=== PATIENT | female | born 2000 | race Caucasian/White ===

== ENCOUNTER 2020-06-11 15:17 | Observation (INO) | payer BC ==
--- NOTE | 2020-06-11 15:43 | ER Document Report ---
ED Medical Screen (RME) - General Chief Complaint: Near Syncope Stated Complaint: LIGHTHEADED,FEEL "TINGLY" Time Seen by Provider: 06/11/20 15:33 Mode of Arrival: Wheelchair Information source: Patient Notes: HPI; 20-year-old female presents to the emergency room today complaining of 2 syncopal episodes that happened just prior to arrival. States positive loss of consciousness for approximately 1 minute. No trauma or injury preceding or post syncopal episode. Patient developed chest tightness after the second syncopal episode but denies it is midsternal tightness. Recently drove here from [place] 2 days ago. Also recently had an IUD put in 3 weeks ago. No history of DVTs. PE: Alert and oriented x3. Moderate distress noted. Lungs: Clear to auscultation without rales, rhonchi, wheezes. Heart tachycardic without murmurs, rubs, gallops. I have greeted and performed a rapid initial assessment of this patient. A comprehensive ED assessment and evaluation of the patient, analysis of test results and completion of the medical decision making process will be conducted by additional ED providers. I have specifically instructed the patient or family members with the patient to immediately return to any nursing staff should anything change in the patient's condition or with their chief complaint. TRAVEL OUTSIDE OF THE [place] IN LAST 30 DAYS: No - Related Data Allergies/Adverse Reactions: Penicillins Allergy (Verified 06/11/20 15:31) Home Medications: spiralactone. q-sameera Past Medical History - Social History Chew tobacco use (# tins/day): No Frequency of alcohol use: Occasional Drug Abuse: None Physical Exam - Vital signs Vitals: Temp Pulse Resp BP Pulse Ox 97.5 F 123 H 18 143/88 H 100 06/11/20 15:25 06/11/20 15:25 06/11/20 15:25 06/11/20 15:25 06/11/20 15:25 Course - Vital Signs Vital signs: Temp Pulse Resp BP Pulse Ox 97.5 F 123 H 18 143/88 H 100 06/11/20 15:25 06/11/20 15:25 06/11/20 15:25 06/11/20 15:25 06/11/20 15:25
--- NOTE | 2020-06-11 16:24 | RADIOLOGY REPORT (SQ) ---
EXAM DESCRIPTION: CHEST SINGLE VIEW IMAGES COMPLETED DATE/TIME: 06/11/2020 4:05 pm REASON FOR STUDY: chest pain COMPARISON: None. EXAM PARAMETERS: NUMBER OF VIEWS: One view. TECHNIQUE: Single frontal radiographic view of the chest acquired. RADIATION DOSE: NA LIMITATIONS: None. FINDINGS: LUNGS AND PLEURA: No opacities, masses or pneumothorax. No pleural effusion. MEDIASTINUM AND HILAR STRUCTURES: No masses. Contour normal. HEART AND VASCULAR STRUCTURES: Heart normal in size. Normal vasculature. BONES: No acute findings. HARDWARE: None in the chest. OTHER: No other significant finding. IMPRESSION: NO ACUTE RADIOGRAPHIC FINDING IN THE CHEST. TECHNICAL DOCUMENTATION: JOB ID: [id number] 2010 [employer]- All Rights Reserved Reading location - IP/workstation name: [email or web address]
[2020-06-11 16:27] LABS: ABSOLUTE EOSINOPHILS # (AUTO) 0.2 10^3/uL (0.0-0.6); ABSOLUTE LYMPHOCYTES (AUTO) 3.4 10^3/uL (0.5-4.7); ABSOLUTE MONOCYTES (AUTO) 0.8 10^3/uL (0.1-1.4); ABSOLUTE NEUT (AUTO) 7.1 10^3/uL (1.7-8.2); BASOPHILS % (AUTO) 0.3 % (0-2); EOSINOPHILS % (AUTO) 1.9 % (0-6); HEMATOCRIT 38.8 % (36.0-47.0); HEMOGLOBIN 13.9 g/dL (12.0-15.5); LYMPHOCYTES % (AUTO) 29.5 % (13-45); MEAN CORPUSCULAR HGB CONC 35.8 g/dL (32.0-36.0); MEAN CORPUSCULAR VOLUME 87 fl (80-97); MONOCYTES % (AUTO) 7.2 % (3-13); PLATELET COUNT 423 10^3/uL (150-450); RED BLOOD COUNT 4.48 10^6/uL (3.72-5.28); RED CELL DISTRIBUTION WIDTH 12.3 % (11.5-14.0); SEGMENTED NEUTROPHILS % (AUTO) 61.1 % (42-78); TOTAL CELLS COUNTED % (AUTO) 100 %; WHITE BLOOD COUNT 11.5 10^3/uL (4.0-10.5)
[2020-06-11] MEDS ORDERED: RINGERS SOLUTION,LACTATED 1,000 ML IV ONE (16:42)
[2020-06-11 16:50] LABS: ALBUMIN 5.3 g/dL (3.5-5.0); ALKALINE PHOSPHATASE 83 U/L (38-126); ANION GAP 15 (5-19); ASPARTATE AMINO TRANSFERASE 30 U/L (14-36); BILIRUBIN,DIRECT 0.3 mg/dL (0.0-0.4); BILIRUBIN,TOTAL 1.2 mg/dL (0.2-1.3); BLOOD UREA NITROGEN 8 mg/dL (7-20); CALCIUM 10.1 mg/dL (8.4-10.2); CARBON DIOXIDE 24 mmol/L (22-30); CHLORIDE 100 mmol/L (98-107); CREATINE KINASE 63 U/L (30-135); GLUCOSE 107 mg/dL (75-110); POTASSIUM 4.1 mmol/L (3.6-5.0); TOTAL PROTEIN 8.3 g/dL (6.3-8.2)
[2020-06-11 17:00] LABS: CREATINE KINASE MB 0.22 ng/mL (<4.55)
[2020-06-11 17:02] LABS: TROPONIN I < 0.012 ng/mL
--- NOTE | 2020-06-11 18:37 | ER Document Report ---
ED Syncope and Near Syncope - General Chief Complaint: Near Syncope Stated Complaint: LIGHTHEADED,FEEL "TINGLY" Time Seen by Provider: 06/11/20 15:33 Mode of Arrival: Wheelchair Notes: 20-year-old female with history of asthma and optic nerve glioma (stable) coming in today with reports of syncopal episodes almost back to back earlier today. Patient evidently drove here from [place] yesterday only stoppin g twice in route. She and her significant other were out having alcoholic beverages last night. Patient reports drinking 5 drinks. They went to bed around 1 AM and woke up at noon today. Patient acknowledges smoking marijuana. Started feeling dizzy and lightheaded on the way up to the apartment. Currently syncopized just for 30 seconds or so. Shortly thereafter she syncopized again. She reports a history in the past of sinus tachycardia. Reports normal thyroid testing recently. She is complaining of some chest tightness and shortness of breath. She has an IUD. She does not smoke cigarettes. No recent surgical interventions. TRAVEL OUTSIDE OF THE [place] IN LAST 30 DAYS: No - Related Data Allergies/Adverse Reactions: Penicillins Allergy (Verified 06/11/20 15:31) Home Medications: spiralactone. q-sameera Past Medical History - General Information source: Patient - Social History Smoking Status: Never Smoker Chew tobacco use (# tins/day): No Frequency of alcohol use: Occasional Drug Abuse: Marijuana Family History: Other - Patient sister has accelerated heart rate and recently had a syncopal episode at work, dad has a "cardiac arrhythmia" and cardiomegaly, takes medication for high blood pressure, mom recently admitted the hospital for cardiac rule out Patient has suicidal ideation: No Patient has homicidal ideation: No - Medical History Medical History: Other Notes: Patient reports history of asthma well-controlled, polycystic ovarian syndrome, and a left optic nerve glioma which is stable - Past Medical History Cardiac Medical History: Reports: Other - Tachycardia Pulmonary Medical History: Reports: Hx Asthma Review of Systems - Review of Systems Notes: Constitutional: No fevers. No chills. EENT: No eye redness. No eye pain. No ear pain. No sore throat. Cardiovascular: + CP and palpitations Respiratory: No cough. +shortness of breath. No respiratory distress. Gastrointestinal: No abdominal pain. No nausea, vomiting, or diarrhea. Genitourinary: Atraumatic. No lesions. No pain. No discharge. Musculoskeletal: Atraumatic. No swelling. No deformities. Skin: No rash or lesions. Lymphatic: No swollen lymph nodes. Neurologic: No headache. +syncope. Psychiatric: No suicidal or homicidal ideation. Physical Exam - Vital signs Vitals: Temp Pulse Resp BP Pulse Ox 97.5 F 123 H 18 143/88 H 100 06/11/20 15:25 06/11/20 15:25 06/11/20 15:25 06/11/20 15:25 06/11/20 15:25 - Notes Notes: General: Well-developed, well-nourished. In no acute distress. Non-toxic appearing. Cardiac: Well-perfused. Tachycardic. No murmurs, rubs, or gallops. Pulmonary: No respiratory distress. No cyanosis. Bilateral lung ambrosio are clear to auscultation. Mildly tachypneic Abdominal: Non-distended. Non-rigid. Bowels sounds are present in all four quadrants. No guarding or rebound. HEENT: Head is atraumatic. Conjunctivae not reddened. No tearing. PERRL. EOMI. Orbits atraumatic. No periorbital swelling or erythema. Oropharynx is without erythema, swelling, or exudates. Neck: Supple. No adenopathy. No meningismus. Dermatologic: Warm with good turgor. No rash. Atraumatic. Chest: Atraumatic. No chest wall tenderness to palpation. Musculoskeletal: Moves all extremities well. No range of motion deficits. no muscular or joint tenderness. No paraspinal muscle tenderness. no midline spinal tenderness or step-off. Genitourinary: Examination deferred Neurologic: No gross neurologic deficits. Psychiatric: Normal mood. Course - Re-evaluation Re-evalutation: 06/11/20 21:39 Heart rate has come down to a normal range. Patient still dizzy and lightheaded. Discussed case with ED attending. Recommends admission for observation. - Vital Signs Vital signs: Temp Pulse Resp BP Pulse Ox 99.3 F 105 H 16 123/78 98 06/11/20 17:29 06/11/20 17:29 06/11/20 17:29 06/11/20 17:29 06/11/20 17:45 - Laboratory Result Diagrams: 06/11/20 15:45 06/11/20 15:45 Laboratory results interpreted by me: 06/11/20 06/11/20 15:45 15:45 WBC 11.5 H Total Protein 8.3 H Albumin 5.3 H - EKG Interpretation by Me EKG shows normal: Sinus rhythm Rate: Tachycardia Discharge - Discharge Clinical Impression: Tachycardia Syncopal episodes Qualifiers: Syncope type: unspecified Qualified Code(s): R55 - Syncope and collapse Condition: Good Disposition: ADMITTED OBSERVATION Admitting Provider: Ava (Hospitalist) Unit Admitted: Telemetry
--- NOTE | 2020-06-11 19:55 | RADIOLOGY REPORT (SQ) ---
EXAM DESCRIPTION: CT HEAD WITHOUT IMAGES COMPLETED DATE/TIME: 06/11/2020 7:28 pm REASON FOR STUDY: syncopal episodes COMPARISON: None. TECHNIQUE: Axial images acquired through the brain without intravenous contrast. Images reviewed wi th bone, brain and subdural windows. Images stored on PACS. All CT scanners at this facility use dose modulation, iterative reconstruction, and/or weight based d osing when appropriate to reduce radiation dose to as low as reasonably achievable (ALARA). [facility]: Dose Right [facility]: CareDose [facility]: Dose Right [facility]: Teradose 4D [facility]: FOLUP RADIATION DOSE: CT Rad equipment meets quality standard of care and radiation dose reduction techniq ues were employed. CTDIvol: 53.2 mGy. DLP: 991 mGy-cm. mGy. LIMITATIONS: None. FINDINGS: VENTRICLES: Normal size and contour. CEREBRUM: No masses. No hemorrhage. No midline shift. No evidence for acute infarction. Normal gra y/white matter differentiation. No areas of low density in the white matter. CEREBELLUM: No masses. No hemorrhage. No alteration of density. No evidence for acute infarction. EXTRAAXIAL SPACES: No fluid collections. No masses. ORBITS AND GLOBE: No intra- or extraconal masses. Normal contour of globe without masses. CALVARIUM: No fracture. PARANASAL SINUSES: No fluid or mucosal thickening. SOFT TISSUES: No mass or hematoma. OTHER: No other significant finding. IMPRESSION: NORMAL BRAIN CT WITHOUT CONTRAST. EVIDENCE OF ACUTE STROKE: NO. COMMENT: Quality ID # [id number]: Final reports with documentation of one or more dose reduction techniques (e.g., Automated exposure control, adjustment of the mA and/or kV according to patient size, use of iterative reconstruction technique) TECHNICAL DOCUMENTATION: JOB ID: [id number] 2010 [employer]- All Rights Reserved Reading location - IP/workstation name: [email or web address]
--- NOTE | 2020-06-11 19:58 | RADIOLOGY REPORT (SQ) ---
EXAM DESCRIPTION: CTA CHEST IMAGES COMPLETED DATE/TIME: 06/11/2020 7:28 pm REASON FOR STUDY: chest pain COMPARISON: None. TECHNIQUE: CT scan of the chest performed using helical scanning technique with dynamic intravenous contrast injection. Images reviewed with lung, soft tissue and bone windows. Reconstructed coronal and sagittal MPR images reviewed. Additional 3 dimensional post-processing performed to develop Maximal Intensity Projection images (AL P). All images stored on PACS. All CT scanners at this facility use dose modulation, iterative reconstruction, and/or weight based d osing when appropriate to reduce radiation dose to as low as reasonably achievable (ALARA). [facility]: Dose Right [facility]: CareDose [facility]: Dose Right [facility]: Teradose 4D [facility]: [employer] CONTRAST TYPE AND DOSE: contrast/concentration: Isovue 350.00 mmol/ml; Total Contrast Delivered: 49. 0 ml; Total Saline Delivered: 29.9 ml 49 mL Isovue 300- low osmolar. Contrast bolus optimized for the pulmonary arteries. Not diagnostic for the aorta. RENAL FUNCTION: GFR > 60. RADIATION DOSE: CT Rad equipment meets quality standard of care and radiation dose reduction techniq ues were employed. CTDIvol: 6.6 - 29.8 mGy. DLP: 1127 mGy-cm. . LIMITATIONS: None. FINDINGS: LUNGS AND PLEURA: No masses, infiltrates, or pneumothorax. No pleural effusions or pleura l calcifications. AORTA AND GREAT VESSELS: No aneurysm. Contrast bolus not optimized for the aorta. HEART: No pericardial effusion. No significant coronary artery calcifications. PULMONARY ARTERIES: No emboli visualized in the main pulmonary arteries or the segmental branches. HILAR AND MEDIASTINAL STRUCTURES: No identified masses or abnormal nodes. HARDWARE: None in the chest. UPPER ABDOMEN: No significant findings. Limited exam. THYROID AND OTHER SOFT TISSUES: No masses. No adenopathy. BONES: No acute or significant finding. 3D MIPS: Confirm above findings. OTHER: No other significant finding. IMPRESSION: NORMAL CTA OF THE CHEST. NO PULMONARY EMBOLI. COMMENT: Quality ID # [id number]: Final reports with documentation of one or more dose reduction techniques (e.g., Automated exposure control, adjustment of the mA and/or kV according to patient size, use of iterative reconstruction technique) TECHNICAL DOCUMENTATION: JOB ID: [id number] 2010 [employer]- All Rights Reserved Reading location - IP/workstation name: [email or web address]
--- NOTE | 2020-06-11 20:23 | EKG REPORT ---
SEVERITY:- BORDERLINE ECG - SINUS TACHYCARDIA BORDERLINE T ABNORMALITIES, INFERIOR LEADS : Confirmed by: Flex Infante 11-Jun-2020 20:22:25
[2020-06-11] MEDS ORDERED: MAG HYDROX/AL HYDROX/SIMETH SUSP 30 ML UDCUP PO PRN (22:17)
[2020-06-11] MEDS ORDERED: MAGNESIUM HYDROXIDE SUSP 30 ML UDCUP PO PRN (22:17)
[2020-06-11] MEDS ORDERED: LEVALBUTEROL HCL NEB 0.63 MG/3 ML AMPUL NEB PRN (22:17)
[2020-06-11] MEDS ORDERED: ONDANSETRON HCL INJ/PF 4 MG/2 ML SDV IV PRN (22:17)
--- NOTE | 2020-06-12 00:40 | PDOC H&P ---
History of Present Illness Admission Date/PCP: 06/11/2020 21:40 OOT PCP Patient complains of: Syncopal episodes History of Present Illness: STEFANIE GONZALEZ is a 20 year old female who presented to the emergency room with a history of 2 syncopal episodes just prior to admission. She admits having a syncopal episode as she was ascending the stairway to her boyfriend's apartment this afternoon. She was unconscious for approximately 30 seconds with no seizure activity per her boyfriend who witnessed the event. He then helped her get to the apartment and within a few minutes she had another syncopal episode of similar nature and duration. She admits accompanying a lightheaded and tingly sensation that begin last evening after she drove to [facility] directly from the [facility] to see her boyfriend. She admits to going out after her arrival and consuming several alcoholic beverages and smoking marijuana. She admits having a late night, getting to sleep about 1 AM, waking up about noon today and still feeling lightheaded and tingly. The syncopal events occurred shortly thereafter. She admits an associated mild tightness and shortness of breath beginning prior to the syncopal episodes and spontaneously resolving during her ER stay. She denies other associated or accompanying signs and symptoms. She denies prior similar episodes. She has not identified any additional aggravating or ameliorating factors for her syncopal episodes. In the emergency room she was found to be mildly tachycardic initially with resolution after receiving IV fluids and was otherwise noted to have an essentially negative evaluation, but the emergency ro om pedro was uncomfortable letting her go home and asked that she be placed on observation status for further evaluation before discharge. Patient was subsequently admitted to observation status on telemetry with a cardiology consult evaluation by Dr. Forman ordered. Past Medical History Cardiac Medical History: Reports: Other - Syncopal episodes in childhood, recent "episodes of tachycardia" Denies: Atrial Fibrillation, Coronary Artery Disease, DVT, Hyperlipidema, Hypertension, Pulmonary Embolism Pulmonary Medical History: Reports: Asthma - Intermittent intrinsic asthma - mild Denies: Chronic Obstructive Pulmonary Disease (COPD) EENT Medical History: Reports: Eyes - Glioma of optic nerve Denies: Cataracts, Ears - Hearing aids Neurological Medical History: Reports: Migraine Denies: Multiple Sclerosis, Seizures Endocrine Medical History: Denies: Diabetes Mellitus Type 1, Hyperthyroidism, Hypothyroidism, Obesity Endocrine History Note: Recent normal thyroid testing performed by her primary care provider in [place] Renal/ Medical History: Reports: Other - Polycystic ovarian syndrome Denies: Chronic Kidney Disease, Nephrolithiasis Malignancy Medical History: Reports: None GI Medical History: Denies: Cirrhosis, Crohn's Disease, Hepatitis, Peptic Ulcer Disease, Ulcerative Colitis Musculoskeltal Medical History: Denies: Arthritis, Fibromyalgia Skin Medical History: Denies: Eczema, Psoriasis Psychiatric Medical History: Reports: Substance Abuse Denies: Alcohol Dependency, Tobacco Dependency Traumatic Medical History: Reports: None Hematology: Denies: Anemia, Bleeding Tendencies Infectious Medical History: Reports: None Past Surgical History Past Surgical History: Reports: Tonsillectomy, Other - Exploratory laparoscopy (evaluation of PCOS), IUD insertion Social History Information Source: Patient Lives with: Spouse/Significant other Smoking Status: Never Smoker Electronic Cigarette use?: No Frequency of Alcohol Use: Social Hx Recreational Drug Use: Yes Drugs: Marijuana Hx Prescription Drug Abuse: No - Advance Directive Resuscitation Status: Full Code Surrogate healthcare decision maker:: Justen Mccloud Family History Family History: CAD - Cardiomegaly, Other - Cardiac arrhythmias in father, s ister with tachycardia and a syncopal episode while at work Parental Family History Reviewed: Yes Children Family History Reviewed: No Sibling(s) Family History Reviewed.: Yes Medication/Allergy Home Medications: Fremanezumab-Vfrm [Ajovy Autoinjector] 225 mg SUBCUT ASDIR 06/12/20 Nitrofurantoin Monohyd/M-Cryst [Macrobid 100 mg Capsule] 1 cap PO BID 06/12/20 Spironolactone [Aldactone 25 mg Tablet] 1 tab PO BID 06/12/20 Allergies/Adverse Reactions: Penicillins Allergy (Verified 06/11/20 15:31) Review of Systems Constitutional: PRESENT: as per HPI, other - Lightheaded and tingly. ABSENT: chills, fever(s) Eyes: ABSENT: visual disturbances, other - Eye pain Ears: ABSENT: hearing changes, other - Ear pain Nose, Mouth, and Throat: ABSENT: headache(s), sore throat Cardiovascular: PRESENT: as per HPI, chest pain - Chest tightness. ABSENT: palpitations Respiratory: PRESENT: as per HPI, dyspnea. ABSENT: cough Gastrointestinal: ABSENT: abdominal pain, constipation, diarrhea, nausea, vomiting Genitourinary: PRESENT: other - Currently being treated for UTI with Macrobid. ABSENT: dysuria, hematuria Musculoskeletal: ABSENT: back pain, joint swelling, muscle weakness Integumentary: ABSENT: pruritus, rash Neurological: PRESENT: as per HPI, syncope, other - Lightheaded and tingly. ABSENT: confusion, convulsions, focal weakness, memory loss Psychiatric: ABSENT: anxiety, depression Endocrine: ABSENT: cold intolerance, heat intolerance Hematologic/Lymphatic: ABSENT: easy bleeding, easy bruising Allergic/Immunologic: ABSENT: seasonal rhinorrhea Physical Exam Vital Signs: Temp Pulse Resp BP Pulse Ox 99.3 F 105 H 16 123/78 98 06/11/20 17:29 06/11/20 17:29 06/11/20 17:29 06/11/20 17:29 06/11/20 17:45 Intake & Output 06/09/20 06/10/20 06/11/20 23:59 23:59 23:59 Intake Total 1000 Balance 1000 Weight 52.6 kg General appearance: PRESENT: no acute distress, cooperative Head exam: PRESENT: atraumatic, normocephalic Eye exam: PRESENT: conjunctiva pink. ABSENT: conjunctival injection, scleral icterus Ear exam: PRESENT: normal external ear exam. ABSENT: bleeding, drainage Mouth exam: PRESENT: dry mucosa, neck supple Neck exam: ABSENT: thyromegaly, tracheal deviation Respiratory exam: PRESENT: clear to auscultation patria, symmetrical, unlabored Cardiovascular exam: PRESENT: RRR. ABSENT: clicks, gallop, rubs Pulses: PRESENT: normal radial pulses, normal dorsalis pedis pul GI/Abdominal exam: PRESENT: normal bowel sounds, soft. ABSENT: tenderness Rectal exam: PRESENT: deferred Extremities exam: ABSENT: joint swelling, pedal edema Musculoskeletal exam: ABSENT: deformity, dislocation Neurological exam: PRESENT: alert, oriented to person, oriented to place, oriented to time, oriented to situation, CN II-XII grossly intact. ABSENT: motor sensory deficit Psychiatric exam: PRESENT: appropriate affect, normal mood Skin exam: PRESENT: dry, intact, warm. ABSENT: jaundice, rash, urticaria Results Laboratory Results: 06/11/20 15:45 06/11/20 15:45 06/11/20 06/11/20 06/11/20 15:45 15:45 15:45 WBC 11.5 H RBC 4.48 Hgb 13.9 Hct 38.8 MCV 87 MCH 31.0 MCHC 35.8 RDW 12.3 Plt Count 423 Seg Neutrophils % 61.1 Sodium 139.0 Potassium 4.1 Chloride 100 Carbon Dioxide 24 Anion Gap 15 BUN 8 Creatinine 0.68 Est GFR ( Amer) > 60 Glucose 107 Calcium 10.1 Total Bilirubin 1.2 AST 30 Alkaline Phosphatase 83 Total Protein 8.3 H Albumin 5.3 H TSH Serum HCG, Qual NEGATIVE 06/11/20 15:45 WBC RBC Hgb Hct MCV MCH MCHC RDW Plt Count Seg Neutrophils % Sodium Potassium Chloride Carbon Dioxide Anion Gap BUN Creatinine Est GFR ( Amer) Glucose Calcium Total Bilirubin AST Alkaline Phosphatase Total Protein Albumin TSH 1.54 Serum HCG, Qual 06/11/20 06/11/20 15:45 15:45 Creatine Kinase 63 CK-MB (CK-2) 0.22 Troponin I < 0.012 Impressions: Chest X-Ray 06/11/20 15:39 IMPRESSION: NO ACUTE RADIOGRAPHIC FINDING IN THE CHEST. Chest/Abdomen CTA 06/11/20 15:39 IMPRESSION: NORMAL CTA OF THE CHEST. NO PULMONARY EMBOLI. Head CT 06/11/20 18:19 IMPRESSION: NORMAL BRAIN CT WITHOUT CONTRAST. EVIDENCE OF ACUTE STROKE: NO. Assessment and Plan - Diagnosis (1) Syncopal episodes Qualifiers: Syncope type: unspecified Qualified Code(s): R55 - Syncope and collapse Is this a current diagnosis for this admission?: Yes (2) Alcohol abuse Is this a current diagnosis for this admission?: Yes (3) Marijuana abuse Is this a current diagnosis for this admission?: Yes (4) Tachycardia Is this a current diagnosis for this admission?: Yes (5) Chest discomfort Is this a current diagnosis for this admission?: Yes (6) Dyspnea Qualifiers: Dyspnea type: unspecified Qualified Code(s): R06.00 - Dyspnea, unspecified Is this a current diagnosis for this admission?: Yes (7) Mild intermittent intrinsic asthma without complication Is this a current diagnosis for this admission?: Yes (8) PCOS (polycystic ovarian syndrome) Is this a current diagnosis for this admission?: Yes (9) History of migraine headaches Is this a current diagnosis for this admission?: Yes (10) Family history of cardiac arrhythmia Is this a current diagnosis for this admission?: Yes - Plan Summary Summary: Patient will be admitted to observation status in a telemetry bed where she will receive routine supportive and symptomatic cares. A cardiology consultation with Dr. Forman will be obtained. Patient will use Ativan 1 mg IV every 4 hours as needed for anxiety or restlessness. Patient will use morphine sulfate 2 to 4 mg IV every 2 hours as needed for pain. She will be on a regular diet. Serial cardiac enzymes will be obtained. CBCs, metabolic profiles and additional laboratory and/or radiographic evaluations will be obtained as needed. - Time Time Spent with patient: Less than 15 minutes Medications reviewed and adjusted accordingly: Yes Anticipated Discharge Disposition: Home, Self Care Anticipated Discharge Timeframe: within 24 hours
[2020-06-12] MEDS: IBUPROFEN 800 MG TABLET PO PRN ×2 (00:49→08:05)
[2020-06-12] MEDS: DEXTROSE 5%-LACTATED RINGERS 1,000 ML IV PRN ×2 (00:50→06:37)
[2020-06-12] MEDS: FAMOTIDINE 20 MG TABLET PO SCH ×2 (00:52→11:10)
[2020-06-12 04:56] LABS: HEMATOCRIT 33.6 % (36.0-47.0); HEMOGLOBIN 12.3 g/dL (12.0-15.5); MEAN CORPUSCULAR HEMOGLOBIN 31.8 pg (27.0-33.4); MEAN CORPUSCULAR HGB CONC 36.5 g/dL (32.0-36.0); MEAN CORPUSCULAR VOLUME 87 fl (80-97); PLATELET COUNT 321 10^3/uL (150-450); RED BLOOD COUNT 3.86 10^6/uL (3.72-5.28); RED CELL DISTRIBUTION WIDTH 12.3 % (11.5-14.0); WHITE BLOOD COUNT 9.1 10^3/uL (4.0-10.5)
[2020-06-12 05:02] LABS: ANION GAP 8 (5-19); BLOOD UREA NITROGEN 8 mg/dL (7-20); CALCIUM 9.2 mg/dL (8.4-10.2); CARBON DIOXIDE 29 mmol/L (22-30); CHLORIDE 103 mmol/L (98-107); GLUCOSE 110 mg/dL (75-110); POTASSIUM 3.7 mmol/L (3.6-5.0)
[2020-06-12] MEDS ORDERED: HEPARIN SOD (PORCINE) 5,000 UNIT/ML 1 ML VIAL SUBCUT SCH (06:00)
[2020-06-12] MEDS ORDERED: NORMAL SALINE 1000 ML 2,000 ML IV ONE (12:43)
[2020-06-12 13:45] VITALS: BP 100/45
--- NOTE | 2020-06-12 20:04 | PDOC DISCHARGE SUMMARY ---
Impression - Admit/DC Date/PCP Admission Date/Primary Care Provider: 06/11/20 21:59 Discharge Date: 06/12/20 - Assessment Summary: 20 year old female with PMH of PCOS on spironolactone and recent UTI on nitrofurantoin presented with orthostatic hypotension resulting in orthostatic syncope x2. This was in the setting of her celebrating her 20st birthday, having had several alcoholic drinks, energy drinks and smoking marijuana. She reports that she has not been drinking any other liquids and not sleeping well. She received IVF hydration with resolution of her orthostatic symptoms and was encouraged to drink at least 2 L of fluids per day, to stop drinking alcohol and to avoid marijuana usage. She was also advised to stop energy drinks and excessive caffeine intake. She has no prior PMH of cardiac arrhythmia, syncope, CAD, NE, etc. She had normal CTA chest, normal head CT and normal labs, including negative troponin x2. She was discharged in stable condition with outpatient follow up. - Additional Information Resuscitation Status: Full Code Discharge Diet: Regular Discharge Activity: Activity As Tolerated Referrals: MARLEEN NEGRETE, [Other] (PATIENT IS FROM OUT OF TOWN. PATIENT WILL FOLLOW UP UPON RETURNING HOME.) Home Medications: Fremanezumab-Vfrm [Ajovy Autoinjector] 225 mg SUBCUT [id number] 06/12/20 Nitrofurantoin Monohyd/M-Cryst [Macrobid 100 mg Capsule] 1 cap PO BID 06/12/20 Spironolactone [Aldactone 25 mg Tablet] 25 mg PO BID 06/12/20 History of Present Illiness History of Present Illness: CHIO GONZALEZ is a 20 year old female Physical Exam Vital Signs: Temp Pulse Resp BP Pulse Ox 97.7 F 54 L 12 100/45 L 100 06/12/20 13:41 06/12/20 13:41 06/12/20 13:41 06/12/20 13:41 06/12/20 13:41 Intake & Output 06/11/20 06/12/20 06/13/20 06:59 06:59 06:59 Intake Total 2266 3000 Balance 2266 3000 Weight 41.3 kg Results Laboratory Results: WBC 9.1 10^3/uL (4.0-10.5) 06/12/20 03:35 RBC 3.86 10^6/uL (3.72-5.28) 06/12/20 03:35 Hgb 12.3 g/dL (12.0-15.5) 06/12/20 03:35 Hct 33.6 % (36.0-47.0) L 06/12/20 03:35 MCV 87 fl (80-97) 06/12/20 03:35 MCH 31.8 pg (27.0-33.4) 06/12/20 03:35 MCHC 36.5 g/dL (32.0-36.0) H 06/12/20 03:35 RDW 12.3 % (11.5-14.0) 06/12/20 03:35 Plt Count 321 10^3/uL (150-450) 06/12/20 03:35 Lymph % (Auto) 29.5 % (13-45) 06/11/20 15:45 Clark % (Auto) 7.2 % (3-13) 06/11/20 15:45 Eos % (Auto) 1.9 % (0-6) 06/11/20 15:45 Baso % (Auto) 0.3 % (0-2) 06/11/20 15:45 Absolute Neuts (auto) 7.1 10^3/uL (1.7-8.2) 06/11/20 15:45 Absolute Lymphs (auto) 3.4 10^3/uL (0.5-4.7) 06/11/20 15:45 Absolute Monos (auto) 0.8 10^3/uL (0.1-1.4) 06/11/20 15:45 Absolute Eos (auto) 0.2 10^3/uL (0.0-0.6) 06/11/20 15:45 Absolute Basos (auto) 0.0 10^3/uL (0.0-0.2) 06/11/20 15:45 Seg Neutrophils % 61.1 % (42-78) 06/11/20 15:45 Sodium 139.8 mmol/L (137-145) 06/12/20 03:35 Potassium 3.7 mmol/L (3.6-5.0) 06/12/20 03:35 Chloride 103 mmol/L (98-107) 06/12/20 03:35 Carbon Dioxide 29 mmol/L (22-30) 06/12/20 03:35 Anion Gap 8 (5-19) 06/12/20 03:35 BUN 8 mg/dL (7-20) 06/12/20 03:35 Creatinine 0.56 mg/dL (0.52-1.25) 06/12/20 03:35 Est GFR ( Amer) > 60 (>60) 06/12/20 03:35 Est GFR (MDRD) Non-Af > 60 (>60) 06/12/20 03:35 Glucose 110 mg/dL (75-110) 06/12/20 03:35 Calcium 9.2 mg/dL (8.4-10.2) 06/12/20 03:35 Magnesium 2.0 mg/dL (1.6-2.3) 06/12/20 03:35 Total Bilirubin 1.2 mg/dL (0.2-1.3) 06/11/20 15:45 Direct Bilirubin 0.3 mg/dL (0.0-0.4) 06/11/20 15:45 Neonat Total Bilirubin Not Reportable 06/11/20 15:45 Neonat Direct Bilirubin Not Reportable 06/11/20 15:45 Neonat Indirect Bili Not Reportable 06/11/20 15:45 AST 30 U/L (14-36) 06/11/20 15:45 ALT 15 U/L (<35) 06/11/20 15:45 Alkaline Phosphatase 83 U/L (38-126) 06/11/20 15:45 Creatine Kinase 63 U/L (30-135) 06/11/20 15:45 CK-MB (CK-2) 0.22 ng/mL (<4.55) 06/11/20 15:45 Troponin I < 0.012 ng/mL 06/11/20 20:03 Total Protein 8.3 g/dL (6.3-8.2) H 06/11/20 15:45 Albumin 5.3 g/dL (3.5-5.0) H 06/11/20 15:45 TSH 1.54 uIU/mL (0.47-4.68) 06/11/20 15:45 Serum HCG, Qual NEGATIVE (NEGATIVE) 06/11/20 15:45 06/11/20 06/11/20 15:45 20:03 CK-MB (CK-2) 0.22 Troponin I < 0.012 < 0.012 Impressions: Chest X-Ray 06/11/20 15:39 IMPRESSION: NO ACUTE RADIOGRAPHIC FINDING IN THE CHEST. Chest/Abdomen CTA 06/11/20 15:39 IMPRESSION: NORMAL CTA OF THE CHEST. NO PULMONARY EMBOLI. Head CT 06/11/20 18:19 IMPRESSION: NORMAL BRAIN CT WITHOUT CONTRAST. EVIDENCE OF ACUTE STROKE: NO. Stroke Is this a Stroke Patient?: No Acute Heart Failure Is this a Heart Failure Patient?: No
== END 2020-06-12 16:05 | disposition home or self-care (01) ==
LOC: ER 15:17 → EH 21:59 → 4W 23:30
PROVIDERS: ADMIT Emergency Medicine; ATTEND Hospitalist
DX: I95.1 Orthostatic hypotension (principal); R00.0 Tachycardia, unspecified; E28.2 Polycystic ovarian syndrome; R06.00 Dyspnea, unspecified; R20.2 Paresthesia of skin; R07.89 Other chest pain; F10.10 Alcohol abuse, uncomplicated; F12.10 Cannabis abuse, uncomplicated; C72.32 Malignant neoplasm of left optic nerve; J45.20 Mild intermittent asthma, uncomplicated; Z97.5 Presence of (intrauterine) contraceptive device; Z82.49 Family history of ischemic heart disease and other diseases of the circulatory system; Z82.0 Family history of epilepsy and other diseases of the nervous system; Z87.440 Personal history of urinary (tract) infections
CPT/HCPCS: 93005; 99285; 96360; 96361; 36415 ×2; 82553; 82550; 83735; 84443; 84703; 85025; 85027; 80048; 80053; 84484; 71045; 70450; 71275; 93010; G0378 ×2; J7121; J7030; J7120